=== PATIENT | female | born 1945 | race Caucasian/White ===

== ENCOUNTER 2020-02-21 13:13 | Observation (INO) ==
--- NOTE | 2020-02-21 14:07 | ERNOTE ---
Dyspnea - Date Date of Service: 02/21/20 - General Presenting Symptoms: shortness of breath Time Seen by Provider: 02/21/20 13:41 Source: patient, RN notes reviewed, old records Exam Limitations: no limitations - Immun/Allergies/Home Medications Immunizations: IMMUNIZATION HX Immunizations Up to Date Yes History of Influenza Vaccine Yes Hx Pneumococcal Vaccination No Allergies/Adverse Reactions: Allergies naproxen Allergy (Mild, Verified 02/21/20 13:36) loss of voice, hives naproxen sodium [From Aleve] Allergy (Mild, Verified 02/21/20 13:36) loss of voice, hives clarithromycin [From Biaxin] Adverse Reaction (Mild, Verified 02/21/20 13:36) runny nose and eyes, rash codeine [Codeine] Adverse Reaction (Mild, Verified 02/21/20 13:36) vomiting, dizziness Home Medications: HOME MEDICATIONS nifedipine 90 mg tablet,extended release 90 mg PO DAILY #90 tab 10/23/19 [Last Taken Unknown] rivaroxaban 20 mg tablet 20 mg PO DAILY #90 tab 10/23/19 [Last Taken Unknown] metoprolol tartrate 50 mg tablet 50 mg PO BID #60 tab 12/06/19 [Last Taken Unknown] zolpidem 5 mg tablet 5 mg PO HS PRN #30 tab 01/21/20 [Last Taken Unknown] PARoxetine HCL [Paroxetine HCl] 20 mg PO DAILY 01/28/20 [Last Taken Unknown] furosemide 20 mg tablet 20 mg PO DAILY 02/05/20 [Last Taken Unknown] Potassium Chloride 10 meq PO DAILY #30 tablet.er 02/07/20 [Last Taken Unknown] spironolactone 25 mg tablet 12.5 mg PO DAILY tab 02/15/20 [Last Taken Unknown] - History of Present Illness Narrative: Brittney is a 74-year-old female who presents to the emergency department for shortness of breath. She saw her primary care provider in the clinic 6 days ago for a follow-up appointment. She was recently hospitalized with hyperkalemia. She reports she was feeling fine until she got home after her appointment when she noticed that she was having a hard time breathing. This is continued since. She denies any fevers or chills. She does report having a cough but attributes this to allergies. She reports lower extremity edema that might be slightly worse than usual. She denies any chest pain. She has no sick contacts at home. Date (Duration): 02/15/20 Treatment UNIFORM ATTENDANT: none Initiating event: Reports: unknown Frequency of episodes: Reports: no prior episodes Modifying Factors - (Improves): Reports: nothing Modifying Factors (Worsens): Reports: activity Associated Symptoms-Dyspnea: Reports: ankle/leg swelling. Denies: fever/chills, chest pain/discomfort, palpitations, wheezing, leg/calf pain Prior Treatment: Reports: recently seen Review of Systems - Review of Systems Constitutional: Present: recent illness. Absent: fever, chills, malaise EYE: Absent: eye pain, eye discharge ENT: Absent: ear pain, nose congestion, nasal drainage, sore throat Respiratory: Present: shortness of breath, cough. Absent: orthopnea, wheezing Cardiology: Present: edema. Absent: chest pain, syncope, claudication Gastrointestinal/Abdominal: Absent: nausea, vomiting, abdominal pain Genitourinary: Absent: decreased urinary output Musculoskeletal: Absent: muscle pain, joint pain Skin: Absent: rash, lesions Neurological: Absent: headache, dizziness/light-headedness Endocrine: Present: no symptoms reported Hematologic/Lymphatic: Present: easy bruising, easy bleeding Psych: Absent: anxiety Medical History (Last Reviewed 02/21/20 @ 15:24 by Sabiha Valdovinos NP) Acute hyperkalemia (Acute) Onset Date: ~02/05/20 Renovascular hypertension (Acute) Onset Date: ~02/05/20 Anemia (Acute) Onset Date: ~2019 Acute kidney injury (Acute) Onset Date: ~02/05/20 GERD (gastroesophageal reflux disease) (Chronic) Onset Date: Unknown Hypertension (Chronic) Onset Date: Unknown Depression (Chronic) Onset Date: Unknown Atrial fibrillation (Chronic) Onset Date: Unknown History of uterine prolapse Onset Date: ~1970 Surgical History: Surgical History (Last Reviewed 02/21/20 @ 15:24 by Sabiha Valdovinos NP) History of appendectomy Onset Date: ~1970 History of arthroplasty of left knee Onset Date: 09/30/14 left History of arthroscopic surgery of shoulder Onset Date: ~2008 Dr Garvey left labral tear, biceps tenodesis History of cholecystectomy Onset Date: Unknown History of total abdominal hysterectomy Onset Date: ~1990 dr Hannon Hx of breast biopsy Onset Date: Unknown both breasts Family History: Family History (Last Reviewed 02/21/20 @ 15:24 by Sabiha Valdovinos NP) Father , age 42 CVA (cerebral vascular accident) Mother , age 84 Hypertension History of stroke Social History: (Last Reviewed 02/21/20 @ 15:24 by Sabiha Valdovinos NP) Social History: Marital status: household members: spouse current occupational status: retired Highest education level completed: some college, no degree Service: No Tobacco: Smoking Status: Former smoker how long ago did patient quit smoking: quit age 38 Alcohol: alcohol intake: current alcohol intake frequency: a few times a month Substance Use: substance use type: does not use Dietary Habits: caffeine: Yes caffeine comment: 3 per week Type: tea, carbonated beverages Physical Exam - Physical Exam General Appearance: Present: alert, mild distress, obese Head Exam: Present: normal inspection Eye Exam: Normal inspection: bilateral Ears, Nose, Throat: Present: normal ENT inspection, normal pharynx Neck: Present: normal inspection, nontender, supple, full range of motion Respiratory: Present: no respiratory distress, lungs clear, accessory muscle use, other - Mild dysnpea present at rest, no cough noted during exam Cardiovascular/Chest: Present: no murmur, irregularly irregular Extremity Exam: Present: non-tender, normal range of motion, pedal edema - mild, bilateral Neurological Exam: Present: alert, oriented, normal mood/affect, no motor/sensory deficits Skin Exam: Present: normal color, warm/dry Progress - Results and Orders Patient's Lab Results:: I have reviewed the patient's lab results. - Vital Signs Patient's Vital Signs:: I have reviewed the patient's vital signs. Vital Signs: Vital Signs 02/21/20 13:32 02/21/20 13:50 Temperature 36.3 C Pulse Rate 89 89 Respiratory Rate 17 Blood Pressure 127/74 O2 Sat by Pulse Oximetry 95 - EKG EKG #1 EKG: atrial fibrillation EKG read: Reviewed by me - X-Ray X-Ray #1 X-Ray: chest Interpretation: Reviewed by me X-ray Comments: Technique: Portable AP view of the chest is compared to prior dated January 27, 2006 Findings: Diffuse hyperinflation of the lungs bilaterally with flattening of the hemidiaphragm. Blunting of the left costophrenic angle suggestive of small effusion. The lungs are otherwise clear bilaterally. There is no consolidation, right pleural effusion or pneumothorax. Cardiac silhouette is enlarged but stable. The pulmonary vasculature are normal. Aortic atherosclerosis. The osseous structures demonstrate degenerative changes of the spine and shoulders. IMPRESSION: 1. SMALL LEFT PLEURAL EFFUSION. 2. OTHERWISE NO ACUTE CARDIOPULMONARY ABNORMALITY IDENTIFIED. Electronically signed by Ananth Carey D.O.. - Progress/Reassessment Chief Complaint: Dyspnea Progress:: Unchanged Plan - Plan Plan: The patient is in CHF with a BNP of 3000 and a small left-sided pleural effusion on chest x-ray. She is mildly dyspneic at rest while she is speaking and has more lower extremity edema than her usual. She tested negative for COVID-19. She was recently hyperkalemic but now has a potassium of only 3.0. Dr. Feliciano was contacted and agreed to admit the patient to observation for diuresis, potassium replacement and monitoring. The patient will be given Lasix 40 mg IV prior to admission. Departure Clinical Impression: Hypokalemia CHF (congestive heart failure) Qualifiers: Heart failure type: unspecified Heart failure chronicity: acute Qualified Code(s): I50.9 - Heart failure, unspecified - Departure Disposition: Still a patient Condition: Stable Referrals: Elvira Morales MD [Primary Care Provider] -
[2020-02-21 14:44] LABS: Hematocrit 32.6 % (37.0-47.0); Hemoglobin 9.5 gm/dL (12.5-16.0); Mean Cell Volume 87.4 fl (78-100); Mean Corpuscular Hemoglobin 25.5 pg (27-31); Mean Corpuscular Hgb Conc 29.1 g/dl (32-36); Neutrophil # 5.5 K/mm3 (1.3-6.0); Neutrophil % 78.6 % (42-75.0); Platelet Count 285 K/mm3 (150-450); Red Blood Count 3.73 M/mm3 (4.2-5.4); Red Cell Distribution Width 20.5 % (11.5-14.0)
[2020-02-21 15:20] LABS: ALT 15 U/L (19-67); AST 21 U/L (0-48); Alkaline Phosphatase * 64 U/L (50-170); Anion Gap 19.3 mmol/L (6.8-13.8); BNP * 3136 pg/mL (5-550); BUN/Creatinine Ratio 21.9 (9.0-21.6); Bilirubin, Total 0.6 mg/dL (0.0-1.1); Blood Urea Nitrogen 21 mg/dL (3-23); Ca. Corrected For Albumin 9.4 mg/dL (8.4-10.2); Calcium * 8.9 mg/dL (7.9-10.9); Carbon Dioxide 18.7 mmol/L (24-32.6); Chloride 102 mmol/L (97-106); Glucose * 133 mg/dL (70-110); Sodium 137 mmol/L (132-142); Total Protein 7.4 gm/dL (6.2-8.2); Troponin I Less than 0.017 ng/mL (0.00-0.10)
[2020-02-21] MEDS ORDERED: FUROSEMIDE 10 MG/ML VIAL IV ONE (16:31)
--- NOTE | 2020-02-21 19:34 | HP ---
Chief Complaint - Chief Complaint Date of Service: 02/21/20 Time of Service: 19:34 Chief Complaint: shortness of breath History of Present Illness: Patient with past medical history of atrial fibrillation on metoprolol and Xarelto, pulmonary hypertension, 27-year smoking history presents with about 6 days of shortness of breath. She has noticed some lower extremity edema. She is also noticed she is developed the inability to lie flat to sleep due to breathing. In the ED, COVID test is negative. EKG showed atrial fibrillation with heart rate of 99. BNP was 3100. Negative troponin. She also had a potassium level of 3.0. Of note, she was recently hospitalized and had a potassium elevated as high as 6.8 on the 11 of this month. She had another hospitalization last month for a bleeding gluteal cleft fissure. Denies fever, chest pain, sick contacts, cough, abdominal pain, urinary symptoms. She had been having some constipation while she is taking iron, but has stopped the supplement and the constipation is resolved. She does have psoriasis. Medical History (Last Reviewed 02/21/20 @ 17:24 by Caro Royal RN) Acute hyperkalemia (Acute) Onset Date: ~02/05/20 Renovascular hypertension (Acute) Onset Date: ~02/05/20 Anemia (Acute) Onset Date: ~2019 Acute kidney injury (Acute) Onset Date: ~02/05/20 GERD (gastroesophageal reflux disease) (Chronic) Onset Date: Unknown Hypertension (Chronic) Onset Date: Unknown Depression (Chronic) Onset Date: Unknown Atrial fibrillation (Chronic) Onset Date: Unknown History of uterine prolapse Onset Date: ~1970 Surgical History: Surgical History (Last Reviewed 02/21/20 @ 17:24 by Caro Royal RN) History of appendectomy Onset Date: ~1970 History of arthroplasty of left knee Onset Date: 09/30/14 left History of arthroscopic surgery of shoulder Onset Date: ~2008 Dr Garvey left labral tear, biceps tenodesis History of cholecystectomy Onset Date: Unknown History of total abdominal hysterectomy Onset Date: ~1990 dr Hannon Hx of breast biopsy Onset Date: Unknown both breasts Family History: Family History (Last Reviewed 02/21/20 @ 17:24 by Caro Royal RN) Father , age 42 CVA (cerebral vascular accident) Mother , age 84 Hypertension History of stroke Social History: (Last Reviewed 02/21/20 @ 17:24 by Caro Royal RN) Social History: Marital status: household members: spouse current occupational status: retired Highest education level completed: some college, no degree Service: No Tobacco: Smoking Status: Former smoker how long ago did patient quit smoking: quit age 38 Alcohol: alcohol intake: current alcohol intake frequency: a few times a month Substance Use: substance use type: does not use Dietary Habits: caffeine: Yes caffeine comment: 3 per week Type: tea, carbonated beverages Review Of Systems (GEN) - Review of Systems Generalized/Overall Review: Absent: Fever Respiratory: Present: Shortness of Breath. Absent: Cough, Wheezing Cardiac: Present: Edema. Absent: Chest Pain Abdominal: Absent: Vomiting Genitourinary: Present: No Symptoms Reported Musculoskeletal: Present: No Symptoms Reported Neurological: Present: No Symptoms Reported Skin: Present: Rash - psoriasis Immunizations: IMMUNIZATION HX Immunizations Up to Date Yes History of Influenza Vaccine Yes Hx Pneumococcal Vaccination No Allergies/Adverse Reactions: Allergies Allergy/AdvReac Type Severity Reaction Status Date / Time naproxen Allergy Mild loss of Verified 02/21/20 13:36 voice, hives naproxen sodium [From Aleve] Allergy Mild loss of Verified 02/21/20 13:36 voice, hives clarithromycin [From Biaxin] AdvReac Mild runny nose Verified 02/21/20 13:36 and eyes, rash codeine [Codeine] AdvReac Mild vomiting, Verified 02/21/20 13:36 dizziness Home Medications: HOME MEDICATIONS nifedipine 90 mg tablet,extended release 90 mg PO DAILY #90 tab 10/23/19 [Last Taken Unknown] rivaroxaban 20 mg tablet 20 mg PO DAILY #90 tab 10/23/19 [Last Taken Unknown] metoprolol tartrate 50 mg tablet 50 mg PO BID #60 tab 12/06/19 [Last Taken U nknown] zolpidem 5 mg tablet 5 mg PO HS PRN #30 tab 01/21/20 [Last Taken Unknown] PARoxetine HCL [Paroxetine HCl] 20 mg PO DAILY 01/28/20 [Last Taken Unknown] furosemide 20 mg tablet 20 mg PO DAILY 02/05/20 [Last Taken Unknown] Potassium Chloride 10 meq PO DAILY #30 tablet.er 02/07/20 [Last Taken Unknown] spironolactone 25 mg tablet 12.5 mg PO DAILY tab 02/15/20 [Last Taken Unknown] Exam - Exam Vital Signs: Vital Signs - Last Taken Temp 36.7 C 02/21/20 17:32 Pulse 94 02/21/20 17:53 Resp 22 H 02/21/20 17:32 BP 122/55 02/21/20 17:32 Pulse Ox 93 02/21/20 17:32 Constitutional: Present: Alert, Cooperative, Morbidly obese Respiratory: Present: no respiratory distress, crackles - bilateral posterior bases, other - Mildly increased work of breathing Cardiovascular/Chest: Present: irregularly irregular Abdomen: Present: obese Extremity: Present: lower extremity edema - 1+ bilaterally Eye contact: Present: cooperative, good eye contact Diagnostic Studies: Abnormal Lab Results 02/21/20 02/21/20 Range/Units 14:25 14:25 RBC 3.73 L (4.2-5.4) M/mm3 Hgb 9.5 L (12.5-16.0) gm/dL Hct 32.6 L (37.0-47.0) % MCH 25.5 L (27-31) pg MCHC 29.1 L (32-36) g/dl RDW 20.5 H (11.5-14.0) % Immature Gran % (Auto) 0.70 H (0.001-0.429) % Immature Gran # (Auto) 0.05 H (0.000-0.0310) K/mm3 Neutrophils % 78.6 H (42-75.0) % Lymphocytes % 9.2 L (20-51) % Lymphocytes # 0.65 L (1.5-3.5) k/mm3 Potassium 3.0 L D (3.4-4.6) mmol/L Carbon Dioxide 18.7 L (24-32.6) mmol/L Anion Gap 19.3 H (6.8-13.8) mmol/L BUN/Creatinine Ratio 21.9 H (9.0-21.6) Random Glucose 133 H (70-110) mg/dL ALT 15 L (19-67) U/L B-Natriuretic Peptide 3136 H (5-550) pg/mL Albumin 3.0 L (3.4-5.0) gm/dl Laboratory Results WBC 7.0 K/mm3 (4.0-10.5) 02/21/20 14:25 RBC 3.73 M/mm3 (4.2-5.4) L 02/21/20 14:25 Hgb 9.5 gm/dL (12.5-16.0) L 02/21/20 14:25 Hct 32.6 % (37.0-47.0) L 02/21/20 14:25 MCV 87.4 fl (78-100) 02/21/20 14:25 MCH 25.5 pg (27-31) L 02/21/20 14:25 MCHC 29.1 g/dl (32-36) L 02/21/20 14:25 RDW 20.5 % (11.5-14.0) H 02/21/20 14:25 Plt Count 285 K/mm3 (150-450) 02/21/20 14:25 MPV 10.0 fl (8-12.5) 02/21/20 14:25 Immature Gran % (Auto) 0.70 % (0.001-0.429) H 02/21/20 14: Immature Gran # (Auto) 0.05 K/mm3 (0.000-0.0310) H 02/21/20 14:25 Neutrophils % 78.6 % (42-75.0) H 02/21/20 14:25 Lymphocytes % 9.2 % (20-51) L 02/21/20 14:25 Monocytes % 7.7 % (0.0-9) 02/21/20 14:25 Eosinophils % 2.8 % (0.0-3.0) 02/21/20 14: Basophils % 1.0 % (0.0-1.0) 02/21/20 14: Nucleated RBC % 0.0 k/mm3 (0-1) 02/21/20 14: Neutrophils # 5.5 K/mm3 (1.3-6.0) 02/21/20 14: Lymphocytes # 0.65 k/mm3 (1.5-3.5) L 02/21/20 14:25 Monocytes # 0.5 k/mm3 (0.0-1.0) 02/21/20 14: Eosinophils # 0.2 k/mm3 (0.0-0.7) 02/21/20 14: Absolute Basophils 0.1 k/mm3 (0.0-0.1) 02/21/20 14:25 Sodium 137 mmol/L (132-142) 02/21/20 14:25 Plasma Sodium 138 mmol/L (130-142) 02/21/20 14:25 Potassium 3.0 mmol/L (3.4-4.6) L D 02/21/20 14:25 Chloride 102 mmol/L (97-106) 02/21/20 14:25 Carbon Dioxide 18.7 mmol/L (24-32.6) L 02/21/20 14:25 Anion Gap 19.3 mmol/L (6.8-13.8) H 02/21/20 14:25 BUN 21 mg/dL (3-23) 02/21/20 14:25 Creatinine 0.96 mg/dL (0.4-1.4) 02/21/20 14:25 Est GFR (Non-Af Amer) 60 mL/min (60-130) D 02/21/20 14:25 BUN/Creatinine Ratio 21.9 (9.0-21.6) H 02/21/20 14:25 Random Glucose 133 mg/dL (70-110) H 02/21/20 14:25 Calcium 8.9 mg/dL (7.9-10.9) 02/21/20 14:25 Calcium Adj for Albumin 9.4 mg/dL (8.4-10.2) 02/21/20 14:25 Total Bilirubin 0.6 mg/dL (0.0-1.1) 02/21/20 14:25 AST 21 U/L (0-48) 02/21/20 14:25 ALT 15 U/L (19-67) L 02/21/20 14:25 Alkaline Phosphatase 64 U/L (50-170) 02/21/20 14:25 Troponin I Less than 0.017 ng/mL (0.00-0.10) 02/21/20 14:25 B-Natriuretic Peptide 3136 pg/mL (5-550) H 02/21/20 14:25 Total Protein 7.4 gm/dL (6.2-8.2) 02/21/20 14:25 Albumin 3.0 gm/dl (3.4-5.0) L 02/21/20 14:25 SARS-CoV-2 (PCR) Not detected (ND) 02/21/20 14:45 Assessment/Plan - Assessment/Plan (1) Shortness of breath Assessment: Differential includes heart failure exacerbation, COPD exacerbation, COVID, pneumonia, ACS. Physical exam findings, chest x-ray with a pleural effusion on the left, and BNP all support heart failure exacerbation. Her last echo was in 2018, and did not show heart failure at that time. Can repeat after discharge. It did show pulmonary hypertension with an RVSP of 43. She was unaware of this diagnosis. She does report a 27-year history of smoking, so she likely also has underlying COPD, which could be a source of her pulmonary hypertension. No wheezing on exam. She denies fever or cough, no increased white blood cell count on her CBC, and no signs of pneumonia all make pneumonia less likely. Troponin was negative and no signs of ischemia or infarct on EKG making ACS less likely. COVID swab negative. She is able to easily conversate and is oxygenating on room air. She does have mildly increased work of breathing. She was given 40 of IV Lasix in the ED. She takes 20 mg p.o. daily at baseline. We will reassess her work of breathing in the morning. If her breathing has improved and potassium recovers, anticipate discharge tomorrow with an increased K+ supplement dose. Problem: Acute (2) Hypokalemia Assessment: Potassium today of 3.0. Will administer 40 mEq K-Dur tonight and in the morning and recheck tomorrow. Chart review shows she has had some fairly drastic fluctuations in her potassium, being as high as 6.8 earlier this month. Unable to find a source of her hyperkalemia at that time. She takes 10 mEq K+ at baseline, as well as 25 mg spironolactone. Likely will decrease her potassium supplement with close follow-up. Problem: Acute (3) Heart failure with preserved ejection fraction Assessment: Repeat echocardiogram has been ordered, to be done after discharge Problem: Suspected Qualifiers: Heart failure chronicity: acute Qualified Code(s): I50.31 - Acute diastolic (congestive) heart failure (4) Pulmonary hypertension Assessment: She was unaware of this diagnosis, but it was present on echo done in 2018. Could be secondary to COPD or obesity hypoventilation syndrome. Repeat echo pending for after discharge. Problem: Chronic (5) Hypertension Assessment: She has a diagnosis of hypertension on her problem list, and has metoprolol and spironolactone, which could be both for blood pressure. Will continue. Blood pressure currently well controlled. Problem: Chronic
[2020-02-21] MEDS ORDERED: ZOLPIDEM TARTRATE 5 MG TABLET PO PRN (19:51)
[2020-02-21] MEDS: METOPROLOL TARTRATE 50 MG TABLET PO SCH (20:33)
[2020-02-22 07:07] LABS: Anion Gap 15.3 mmol/L (6.8-13.8); BUN/Creatinine Ratio 21.8 (9.0-21.6); Bilirubin, Total 0.7 mg/dL (0.0-1.1); Ca. Corrected For Albumin 9.2 mg/dL (8.4-10.2); Calcium * 8.7 mg/dL (7.9-10.9); Carbon Dioxide 24.5 mmol/L (24-32.6); Potassium 2.8 mmol/L (3.4-4.6); Total Protein 6.4 gm/dL (6.2-8.2)
[2020-02-22] MEDS ORDERED: FUROSEMIDE 10 MG/ML VIAL IV ONE (07:50)
[2020-02-22 07:57] LABS: Magnesium 1.9 mg/dL (1.2-2.8); Phosphorus 3.1 mg/dL (2.2-4.2)
[2020-02-22] MEDS: POTASSIUM CHLORIDE IN WATER 100 ML IV SCH ×4 (08:24→11:42)
[2020-02-22] MEDS: METOPROLOL TARTRATE 50 MG TABLET PO SCH (08:26)
[2020-02-22] MEDS ORDERED: NIFEdipine 30 MG TAB.SR.24H PO SCH (09:00)
[2020-02-22] MEDS ORDERED: PARoxetine HCL 20 MG TABLET PO SCH (09:00)
[2020-02-22] MEDS ORDERED: POTASSIUM CHLORIDE 20 MEQ TABLET.SA PO SCH (09:00)
[2020-02-22] MEDS ORDERED: SPIRONOLACTONE 25 MG TABLET PO SCH (09:00)
[2020-02-22] MEDS ORDERED: RIVAROXABAN 20 MG TABLET PO SCH (09:00)
[2020-02-22 14:45] LABS: Anion Gap 16.9 mmol/L (6.8-13.8); Calcium * 8.9 mg/dL (7.9-10.9); Carbon Dioxide 22.5 mmol/L (24-32.6); Estimated Creat Clear 29.4; Potassium 3.4 mmol/L (3.4-4.6)
--- NOTE | 2020-02-22 17:14 | DS ---
(1) Shortness of breath Problem: Resolved (2) Hypokalemia Problem: Resolved (3) Heart failure with preserved ejection fraction Problem: Suspected Qualifiers: Heart failure chronicity: acute Qualified Code(s): I50.31 - Acute diastolic (congestive) heart failure (4) Pulmonary hypertension Problem: Chronic (5) Hypertension Problem: Chronic Date of Discharge:: 02/22/20 Hospital Course: Patient with past medical history of atrial fibrillation on metoprolol and Xarelto, pulmonary hypertension, 27-year smoking history presents with about 6 days of shortness of breath. She has noticed some lower extremity edema. She is also noticed she is developed the inability to lie flat to sleep due to breathing. In the ED, COVID test is negative. EKG showed atrial fibrillation with heart rate of 99. BNP was 3100. Negative troponin. She also had a potassium level of 3.0. Of note, she was recently hospitalized and had a potassium elevated as high as 6.8 on the 11th of this month. She had another hospitalization last month for a bleeding gluteal cleft fissure. Denies fever, chest pain, sick contacts, cough, abdominal pain, urinary symptoms. She was given 40 mg IV lasix twice, and she felt like her breathing improved. Will DC with 40 mg po lasix for her to take daily. Repeat echocardiogram ordered to be done next week. At DC, she did still seem like she was having a mild increase in her work of breathing, so will send with a few days of prednisone. She has a smoking history, and COPD is suspected. She was also given 40 mEq IV KCl, and her potassium improved to 3.4. Will increase home supplement to 40 mEq daily. Will need close follow up to ensure s he does not again develop hyperkalemia. Repeat BMP ordered for 02/27/20. With the increase in lasix dose, I feel like this is less likely to happen, however. Procedures Performed: none Results and Findings: Lab Pending Results 02/21/20 14:25: WBC 7.0, RBC 3.73 L, Hgb 9.5 L, Hct 32.6 L, MCV 87.4, MCH 25.5 L, MCHC 29.1 L, RDW 20.5 H, Plt Count 285, MPV 10.0, Immature Gran % (Auto) 0.70 H, Immature Gran # (Auto) 0.05 H, Neutrophils % 78.6 H, Lymphocytes % 9.2 L, Monocytes % 7.7, Eosinophils % 2.8, Basophils % 1.0, Nucleated RBC % 0.0, Neutrophils # 5.5, Lymphocytes # 0.65 L, Monocytes # 0.5, Eosinophils # 0.2, Absolute Basophils 0.1 02/21/20 14:25: Sodium 137, Plasma Sodium 138, Potassium 3.0 L D, Chloride 102, Carbon Dioxide 18.7 L, Anion Gap 19.3 H, BUN 21, Creatinine 0.96, Est GFR (Non- Af Amer) 60 D, BUN/Creatinine Ratio 21.9 H, Random Glucose 133 H, Calcium 8.9, Calcium Adj for Albumin 9.4, Total Bilirubin 0.6, AST 21, ALT 15 L, Alkaline Phosphatase 64, Troponin I Less than 0.017, B-Natriuretic Peptide 3136 H, Total Protein 7.4, Albumin 3.0 L 02/21/20 14:45: SARS-CoV-2 (PCR) Not detected 02/22/20 06:00: Sodium 140, Plasma Sodium 140, Potassium 2.8 L, Chloride 103, Carbon Dioxide 24.5, Anion Gap 15.3 H, BUN 17, Creatinine 0.78, Est GFR (Non-Af Amer) 76 D, BUN/Creatinine Ratio 21.8 H, Random Glucose 101, Calcium 8.7, Calcium Adj for Albumin 9.2, Total Bilirubin 0.7, AST 14, ALT 16 L, Alkaline Phosphatase 63, Total Protein 6.4, Albumin 3.0 L 02/22/20 06:00: Phosphorus 3.1, Magnesium 1.9 02/22/20 14:15: Sodium 136, Plasma Sodium 137, Potassium 3.4 D, Chloride 100, Carbon Dioxide 22.5 L, Anion Gap 16.9 H, BUN 20, Creatinine 1.11, Est GFR (Non- Af Amer) 51 L D, BUN/Creatinine Ratio 18.0, Random Glucose 173 H D, Calcium 8.9 Discharge Location: Home Disposition: Home self-care Condition: Stable Discharge Activity: Activity as tolerated Discharge Diet: Low salt Referrals: Elvira Morales MD [Primary Care Provider] - 02/27/20 Additional Patient Instructions (free text): Echocardiogram in 1 week- community wide scheduling will call you with an appointment. Prescriptions (Any new or edited meds): Furosemide 40 mg PO DAILY #60 predniSONE [Prednisone] 2 tab PO DAILY #10 tab Transmission Status: Pending to [facility] Complete Home Medications List: Complete Home Medication List: nifedipine 90 mg tablet,extended release 90 mg PO DAILY #90 tab 10/23/19 rivaroxaban 20 mg tablet 20 mg PO DAILY #90 tab 10/23/19 metoprolol tartrate 50 mg tablet 50 mg PO BID #60 tab 12/06/19 zolpidem 5 mg tablet 5 mg PO HS PRN #30 tab 01/21/20 PARoxetine HCL [Paroxetine HCl] 20 mg PO DAILY 01/28/20 Potassium Chloride 10 meq PO DAILY #30 tablet.er 02/07/20 spironolactone 25 mg tablet 12.5 mg PO DAILY tab 02/15/20 Furosemide 40 mg PO DAILY #60 02/22/20 predniSONE [Prednisone] 2 tab PO DAILY #10 tab 02/22/20 Amb Orders for Discharge: US Echocardiogram Complete * Time Frame: 1 Week, Facility: [facility], Location: Radiology
[2020-02-22 18:49] VITALS: BP 135/60
== END 2020-02-22 17:55 | disposition home or self-care (01) ==
LOC: ER 13:13 → MS 13:13
PROVIDERS: ADMIT Family Medicine; ATTEND Family Medicine
DX: K21.9 Gastro-esophageal reflux disease without esophagitis; I48.91 Unspecified atrial fibrillation; I50.31 Acute diastolic (congestive) heart failure; E87.6 Hypokalemia; I27.20 Pulmonary hypertension, unspecified; I15.0 Renovascular hypertension; I11.0 Hypertensive heart disease with heart failure; Z87.891 Personal history of nicotine dependence

== ENCOUNTER 2020-03-24 10:42 | Observation (INO) ==
--- NOTE | 2020-03-24 11:43 | ERNOTE ---
Dyspnea - Date Date of Service: 03/24/20 - General Presenting Symptoms: shortness of breath, difficulty of breathing Time Seen by Provider: 03/24/20 11:30 Source: patient Exam Limitations: no limitations - Immun/Allergies/Home Medications Immunizations: IMMUNIZATION HX Immunizations Up to Date Yes History of Influenza Vaccine No Hx Pneumococcal Vaccination No Allergies/Adverse Reactions: Allergies naproxen Allergy (Mild, Verified 02/27/20 10:16) loss of voice, hives naproxen sodium [From Aleve] Allergy (Mild, Verified 02/27/20 10:16) loss of voice, hives clarithromycin [From Biaxin] Adverse Reaction (Mild, Verified 02/27/20 10:16) runny nose and eyes, rash codeine [Codeine] Adverse Reaction (Mild, Verified 02/27/20 10:16) vomiting, dizziness Home Medications: HOME MEDICATIONS nifedipine 90 mg tablet,extended release 90 mg PO DAILY #90 tab 10/23/19 [Last Taken Unknown] rivaroxaban 20 mg tablet 20 mg PO DAILY #90 tab 10/23/19 [Last Taken Unknown] metoprolol tartrate 50 mg tablet 50 mg PO BID #60 tab 12/06/19 [Last Taken Unknown] zolpidem 5 mg tablet 5 mg PO HS PRN #30 tab 01/21/20 [Last Taken Unknown] PARoxetine HCL [Paroxetine HCl] 20 mg PO DAILY 01/28/20 [Last Taken Unknown] spironolactone 25 mg tablet 12.5 mg PO DAILY tab 02/15/20 [Last Taken Unknown] Furosemide 40 mg PO DAILY #60 02/22/20 [Last Taken Unknown] predniSONE [Prednisone] 2 tab PO DAILY #10 tab 02/22/20 [Last Taken Unknown] potassium chloride 10 mEq tablet,extended release 20 meq PO DAILY #60 tab 03/12/20 [Last Taken Unknown] - Pain Score Pain Score #1 Pain Score: 0 - History of Present Illness Narrative: The patient is a 74 year old female who presents for shortness of breath which has been worsening since . There are no associated symptoms. The patient denies pain. There are alleviating factors of rest. There are aggravating factors of minimal activity. Previous treatments have included: none. The past medical history includes: AFib, depression, HTN, GERD and anemia. The social history is positive for former smoker. The patient has had no known ill contacts. Patient was admitted 1 month ago for CHF exacerbation and hypokalemia, patient had previously been hyperkalemic and taken off supplements. Patient states she was kept overnight for diaphoresis and was discharged the following day with resolved symptoms. Patient states she has had an intermittent cough that is more clearing of her throat then cough with chest congestion. Patient states if she is resting in the chair she is fine but any minimal exertion, including just writing she becomes dyspneic. Patient denies weight changes or increased edema. Review of Systems - Review of Systems Constitutional: Present: recent illness, fatigue. Absent: fever, chills, diaphoresis EYE: Present: no symptoms reported ENT: Present: no symptoms reported. Absent: ear pain, nasal drainage, sore throat Respiratory: Present: shortness of breath, cough Cardiology: Present: no symptoms reported. Absent: chest pain Gastrointestinal/Abdominal: Present: no symptoms reported. Absent: nausea, vomiting, diarrhea, abdominal pain Genitourinary: Present: no symptoms reported. Absent: dysuria Musculoskeletal: Present: no symptoms reported Skin: Present: no symptoms reported. Absent: rash Neurological: Present: no symptoms reported. Absent: dizziness/light-headedness All Other Systems: All systems neg except as marked Medical History (Last Reviewed 03/24/20 @ 11:38 by FREDRICK Prater) Acute hyperkalemia (Acute) Onset Date: ~02/05/20 Renovascular hypertension (Acute) Onset Date: ~02/05/20 Anemia (Acute) Onset Date: ~2019 Acute kidney injury (Acute) Onset Date: ~02/05/20 GERD (gastroesophageal reflux disease) (Chronic) Onset Date: Unknown Hypertension (Chronic) Onset Date: Unknown Depression (Chronic) Onset Date: Unknown Atrial fibrillation (Chronic) Onset Date: Unknown History of uterine prolapse Onset Date: ~1970 Surgical History: Surgical History (Last Reviewed 03/24/20 @ 11:38 by FREDRICK Prater) History of appendectomy Onset Date: ~1970 History of arthroplasty of left knee Onset Date: 09/30/14 left History of arthroscopic surgery of shoulder Onset Date: ~2008 Dr Garvey left labral tear, biceps tenodesis History of cholecystectomy Onset Date: Unknown History of total abdominal hysterectomy Onset Date: ~1990 dr Hannon Hx of breast biopsy Onset Date: Unknown both breasts Family History: Family History (Last Reviewed 03/24/20 @ 11:38 by FREDRICK Prater) Father , age 42 CVA (cerebral vascular accident) Mother , age 84 Hypertension History of stroke Social History: (Last Reviewed 03/24/20 @ 11:38 by FREDRICK Prater) Social History: Marital status: household members: spouse current occupational status: retired Highest education level completed: some college, no degree Service: No Tobacco: Smoking Status: Former smoker how long ago did patient quit smoking: quit age 38 Alcohol: alcohol intake: current alcohol intake frequency: a few times a month Substance Use: substance use type: does not use Dietary Habits: caffeine: Yes caffeine comment: 3 per week Type: tea, carbonated beverages Physical Exam - Physical Exam General Appearance: Present: wd/wn, alert, mild distress Head Exam: Present: normal inspection, no evidence of injury Eye Exam: Normal inspection: bilateral, PERRL: bilateral, EOMI: bilateral Ears, Nose, Throat: Present: normal ENT inspection, normal pharynx Neck: Present: normal inspection Respiratory: Present: respiratory distress - mild at rest, breaks in middle of sentence, accessory muscle use, decreased breath sounds - bases bilateral. Absent: crackles, wheezing Cardiovascular/Chest: Present: no murmur, irregularly irregular - regular rate Extremity Exam: Present: extremity edema - trace, non-pitting Neurological Exam: Present: alert, oriented, normal mood/affect, no motor/sensory deficits Skin Exam: Present: normal color, warm/dry Progress - Date and Time Seen: Date and Time: 03/24/20 14:00 Discussed case with . Feel that patient has increased dyspnea associated with anemia, Hgb 8.2. However, CXR does show findings consistent with CHF exacerbation, BNP slightly elevated at 1187. Will admit and add Lasix 40mg IVP with the plan to transfuse 1 unit PRBC for anemia. Discussed elevated INR with use of Xarelto and will plan to stool occult until positive for monitoring. Patient denies any blood or changes to stool color. Due to hospitalization and symptoms of dyspnea will send for COVID testing. - Results and Orders Patient's Lab Results:: I have reviewed the patient's lab results. - Vital Signs Patient's Vital Signs:: I have reviewed the patient's vital signs. Vital Signs: Vital Signs 03/24/20 11:19 Temperature 35.7 C L Pulse Rate 82 Respiratory Rate 26 H Blood Pressure 109/61 O2 Sat by Pulse Oximetry 94 - EKG EKG #1 EKG: atrial fibrillation - rate 80, nonspecific ST T wave changes EKG read: Reviewed by me - X-Ray X-Ray #1 X-Ray: chest Interpretation: Reviewed by me X-ray Comments: IMPRESSION: FINDINGS CONSISTENT WITH ACUTE CHF EXACERBATION. Electronically signed by Ananth Carey D.O.. - Progress/Reassessment Chief Complaint: Dyspnea Progress:: Unchanged Departure Clinical Impression: Anemia Qualifiers: Anemia type: unspecified type Qualified Code(s): D64.9 - Anemia, unspecified CHF (congestive heart failure) Qualifiers: Heart failure type: unspecified Heart failure chronicity: acute on chronic Qualified Code(s): I50.9 - Heart failure, unspecified - Departure Disposition: Still a patient Condition: Stable Referrals: Elvira Morales MD [Primary Care Provider] -
[2020-03-24 12:30] LABS: Hematocrit 29.1 % (37.0-47.0); Hemoglobin 8.2 gm/dL (12.5-16.0); Mean Cell Volume 80.2 fl (78-100); Mean Corpuscular Hemoglobin 22.6 pg (27-31); Mean Corpuscular Hgb Conc 28.2 g/dl (32-36); Mean Platelet Volume 9.3 fl (8-12.5); NRBC# 0.1 k/mm3 (0-1); Neutrophil # 4.2 K/mm3 (1.3-6.0); Neutrophil % 74.6 % (42-75.0); Platelet Count 455 K/mm3 (150-450); Red Blood Count 3.63 M/mm3 (4.2-5.4); Red Cell Distribution Width 19.5 % (11.5-14.0); White Blood Count 5.6 K/mm3 (4.0-10.5)
[2020-03-24 12:40] LABS: Prothrombin Time (Patient) 14.3 Seconds (9.1-10.7)
[2020-03-24 12:47] LABS: INR 1.47 INR (0.92-1.08)
[2020-03-24 12:51] LABS: ALT 15 U/L (19-67); AST 19 U/L (0-48); Albumin * 3.2 gm/dl (3.4-5.0); Alkaline Phosphatase * 71 U/L (50-170); Anion Gap 14.8 mmol/L (6.8-13.8); BNP * 1187 pg/mL (5-550); BUN/Creatinine Ratio 19.3 (9.0-21.6); Blood Urea Nitrogen 17 mg/dL (3-23); Ca. Corrected For Albumin 9.8 mg/dL (8.4-10.2); Calcium * 9.5 mg/dL (7.9-10.9); Carbon Dioxide 23.7 mmol/L (24-32.6); Chloride 104 mmol/L (97-106); Glucose * 114 mg/dL (70-110); Potassium 3.5 mmol/L (3.4-4.6); Sodium 139 mmol/L (132-142); Total Protein 7.5 gm/dL (6.2-8.2); Troponin I Less than 0.017 ng/mL (0.00-0.10)
[2020-03-24] MEDS ORDERED: FUROSEMIDE 10 MG/ML VIAL IV ONE (13:46)
--- NOTE | 2020-03-24 19:59 | HP ---
Chief Complaint - Chief Complaint Date of Service: 03/24/20 Time of Service: 19:52 Chief Complaint: dyspnea History of Present Illness: The patient is a 74 year old female who presents for shortness of breath which has been worsening since . There are no associated symptoms. The patient denies pain. There are alleviating factors of rest. There are aggravating factors of minimal activity. Previous treatments have included: none. The past medical history includes: AFib, depression, HTN, GERD and anemia. The social history is positive for former smoker. The patient has had no known ill contacts. Patient was admitted 1 month ago for CHF exacerbation and hypokalemia, patient had previously been hyperkalemic and taken off supplements. Patient states she was kept overnight for diaphoresis and was discharged the following day with resolved symptoms. Patient states she has had an intermittent cough that is more clearing of her throat then cough with chest congestion. Patient states if she is resting in the chair she is fine but any minimal exertion, including just writing she becomes dyspneic. Patient denies weight changes or increased edema. Brittney has had 40 mg of Lasix IV in the ER and is urinated a significant amount and is breathing easier this evening. She has walked back and forth to the bathroom without being particularly dyspneic. She has been typed and crossed for 1 unit of packed red blood cells but has not been administered yet. Her neck veins were reported distended with a positive HJR in the emergency room but that is gone now by my exam with her sitting at 90 degrees. She is in no distress this evening. Medical History (Last Reviewed 03/24/20 @ 16:21 by Araseli Guillory RN) Acute hyperkalemia (Acute) Onset Date: ~02/05/20 Renovascular hypertension (Acute) Onset Date: ~02/05/20 Anemia (Acute) Onset Date: ~2019 Acute kidney injury (Acute) Onset Date: ~02/05/20 GERD (gastroesophageal reflux disease) (Chronic) Onset Date: Unknown Hypertension (Chronic) Onset Date: Unknown Depression (Chronic) Onset Date: Unknown Atrial fibrillation (Chronic) Onset Date: Unknown History of uterine prolapse Onset Date: ~1970 Surgical History: Surgical History (Last Reviewed 03/24/20 @ 16:21 by Araseli Guillory RN) History of appendectomy Onset Date: ~1970 History of arthroplasty of left knee Onset Date: 09/30/14 left History of arthroscopic surgery of shoulder Onset Date: ~2008 Dr Garvey left labral tear, biceps tenodesis History of cholecystectomy Onset Date: Unknown History of total abdominal hysterectomy Onset Date: ~1990 dr Hannon Hx of breast biopsy Onset Date: Unknown both breasts Family History: Family History (Last Reviewed 03/24/20 @ 16:21 by Araseli Guillory RN) Father , age 42 CVA (cerebral vascular accident) Mother , age 84 Hypertension History of stroke Social History: (Last Reviewed 03/24/20 @ 16:21 by Araseli Guillory RN) Social History: Marital status: household members: spouse current occupational status: retired Highest education level completed: some college, no degree Service: No Tobacco: Smoking Status: Former smoker how long ago did patient quit smoking: quit age 38 Alcohol: alcohol intake: current alcohol intake frequency: a few times a month Substance Use: substance use type: does not use Dietary Habits: caffeine: Yes caffeine comment: 3 per week Type: tea, carbonated beverages Review Of Systems (GEN) - Review of Systems Generalized/Overall Review: Present: Weakness, Fatigue EENTM: Present: No Symptoms Reported Respiratory: Present: Shortness of Breath Cardiac: Present: Palpitations - With chronic atrial fibrillation that is rate controlled Abdominal: Present: No Symptoms Reported Genitourinary: Present: No Symptoms Reported Musculoskeletal: Present: No Symptoms Reported Neurological: Present: No Symptoms Reported Skin: Present: No Symptoms Reported Endocrine: Present: No Symptoms Reported Misc: All systems neg except as marked Immunizations: IMMUNIZATION HX Immunizations Up to Date Yes History of Influenza Vaccine No Hx Pneumococcal Vaccination No Allergies/Adverse Reactions: Allergies Allergy/AdvReac Type Severity Reaction Status Date / Time ibuprofen [From Advil] Allergy Mild Verified 03/24/20 16:21 naproxen Allergy Mild loss of Verified 02/27/20 10:16 voice, hives naproxen sodium [From Aleve] Allergy Mild loss of Verified 02/27/20 10:16 voice, hives clarithromycin [From Biaxin] AdvReac Mild runny nose Verified 02/27/20 10:16 and eyes, rash codeine [Codeine] AdvReac Mild vomiting, Verified 02/27/20 10:16 dizziness Home Medications: HOME MEDICATIONS nifedipine 90 mg tablet,extended release 90 mg PO DAILY #90 tab 10/23/19 [Last Taken Unknown] rivaroxaban 20 mg tablet 20 mg PO DAILY #90 tab 10/23/19 [Last Taken Unknown] metoprolol tartrate 50 mg tablet 50 mg PO BID #60 tab 12/06/19 [Last Taken Unknown] zolpidem 5 mg tablet 5 mg PO HS PRN #30 tab 01/21/20 [Last Taken Unknown] PARoxetine HCL [Paroxetine HCl] 20 mg PO DAILY 01/28/20 [Last Taken Unknown] spironolactone 25 mg tablet 12.5 mg PO DAILY tab 02/15/20 [Last Taken Unknown] Furosemide 40 mg PO DAILY #60 02/22/20 [Last Taken Unknown] potassium chloride 10 mEq tablet,extended release 20 meq PO DAILY #60 tab 03/12/20 [Last Taken Unknown] Ezetimibe [Zetia] 10 mg PO DAILY 03/24/20 [Last Taken Unknown] Exam - Exam Vital Signs: Vital Signs - Last Taken Temp 36.2 C 03/24/20 16:11 Pulse 92 03/24/20 17:19 Resp 22 H 03/24/20 16:11 BP 150/68 H 03/24/20 16:11 Pulse Ox 95 03/24/20 16:11 Constitutional: Present: Alert, Oriented x3, Cooperative, Well developed, Well nourished, No distress ENT Exam: Present: normal ENT inspection, hearing grossly normal, pharynx normal, TMs normal Eye Exam: bilateral eye: normal inspection, PERRL, EOMI Neck: Present: non-tender, full range of motion, supple, normal inspection Back Exam: Present: normal inspection, other - Increased thoracic kyphosis Breasts: Present: Exam deferred Respiratory: Present: chest non-tender, normal breath sounds, no respiratory distress, no accessory muscle use, crackles - Right posterior base Cardiovascular/Chest: Present: normal peripheral pulses, no chest tenderness, no edema, no gallop, no JVD, no murmur, no rub, irregularly irregular Peripheral Pulses: carotid (R): 2+, carotid (L): 2+, radial (R): 2+, radial (L): 2+ Abdomen: Present: Normal bowel sounds, soft, nontender, nondistended, no rebound tenderness, no hepatospenomegaly, no masses /Rectal: Present: Exam deferred, External genitalia normal Extremity: Present: normal range of motion, non-tender, normal inspection, no pedal edema, no calf tenderness, normal capillary refill Skin Exam: Present: normal color, warm/dry, no cyanosis Lymphatic: Present: no adenopathy Neurologic: Present: speech pathology assistant II-XII nml as tested, normal cerebellar test, no motor/sensory deficits, alert, normal mood/affect Appearance: Present: appropriate appearance, appropriate insight, neat, no memory impairment Eye contact: Present: cooperative, good eye contact, normal speech Thoughts: Present: normal thought pattern, no apparent hallucination Diagnostic Studies: Abnormal Lab Results 03/24/20 03/24/20 03/24/20 Range/Units 12:05 12:05 12:05 RBC 3.63 L (4.2-5.4) M/mm3 Hgb 8.2 L (12.5-16.0) gm/dL Hct 29.1 L (37.0-47.0) % MCH 22.6 L (27-31) pg MCHC 28.2 L (32-36) g/dl RDW 19.5 H (11.5-14.0) % Plt Count 455 H (150-450) K/mm3 Immature Gran % (Auto) 1.30 H (0.001-0.429) % Immature Gran # (Auto) 0.07 H (0.000-0.0310) K/mm3 Lymphocytes % 12.4 L (20-51) % Basophils % 1.1 H (0.0-1.0) % Lymphocytes # 0.69 L (1.5-3.5) k/mm3 PT 14.3 H (9.1-10.7) Seconds INR (Anticoag Therapy) 1.47 H (0.92-1.08) INR Carbon Dioxide 23.7 L (24-32.6) mmol/L Anion Gap 14.8 H (6.8-13.8) mmol/L Random Glucose 114 H (70-110) mg/dL ALT 15 L (19-67) U/L B-Natriuretic Peptide 1187 H (5-550) pg/mL Albumin 3.2 L (3.4-5.0) gm/dl Crossmatch 03/24/20 Range/Units 14:09 RBC (4.2-5.4) M/mm3 Hgb (12.5-16.0) gm/dL Hct (37.0-47.0) % MCH (27-31) pg MCHC (32-36) g/dl RDW (11.5-14.0) % Plt Count (150-450) K/mm3 Immature Gran % (Auto) (0.001-0.429) % Immature Gran # (Auto) (0.000-0.0310) K/mm3 Lymphocytes % (20-51) % Basophils % (0.0-1.0) % Lymphocytes # (1.5-3.5) k/mm3 PT (9.1-10.7) Seconds INR (Anticoag Therapy) (0.92-1.08) INR Carbon Dioxide (24-32.6) mmol/L Anion Gap (6.8-13.8) mmol/L Random Glucose (70-110) mg/dL ALT (19-67) U/L B-Natriuretic Peptide (5-550) pg/mL Albumin (3.4-5.0) gm/dl Crossmatch See Detail Laboratory Results WBC 5.6 K/mm3 (4.0-10.5) 03/24/20 12:05 RBC 3.63 M/mm3 (4.2-5.4) L 03/24/20 12:05 Hgb 8.2 gm/dL (12.5-16.0) L 03/24/20 12:05 Hct 29.1 % (37.0-47.0) L 03/24/20 12:05 MCV 80.2 fl (78-100) 03/24/20 12:05 MCH 22.6 pg (27-31) L 03/24/20 12:05 MCHC 28.2 g/dl (32-36) L 03/24/20 12:05 RDW 19.5 % (11.5-14.0) H 03/24/20 12:05 Plt Count 455 K/mm3 (150-450) H 03/24/20 12:05 MPV 9.3 fl (8-12.5) 03/24/20 12:05 Immature Gran % (Auto) 1.30 % (0.001-0.429) H 03/24/20 12:05 Immature Gran # (Auto) 0.07 K/mm3 (0.000-0.0310) H 03/24/20 12:05 Neutrophils % 74.6 % (42-75.0) 03/24/20 12:05 Lymphocytes % 12.4 % (20-51) L 03/24/20 12:05 Monocytes % 8.1 % (0.0-9) 03/24/20 12:05 Eosinophils % 2.5 % (0.0-3.0) 03/24/20 12:05 Basophils % 1.1 % (0.0-1.0) H 03/24/20 12:05 Nucleated RBC % 0.1 k/mm3 (0-1) 03/24/20 12:05 Neutrophils # 4.2 K/mm3 (1.3-6.0) 03/24/20 12:05 Lymphocytes # 0.69 k/mm3 (1.5-3.5) L 03/24/20 12:05 Monocytes # 0.5 k/mm3 (0.0-1.0) 03/24/20 12:05 Eosinophils # 0.1 k/mm3 (0.0-0.7) 03/24/20 12:05 Absolute Basophils 0.1 k/mm3 (0.0-0.1) 03/24/20 12:05 PT 14.3 Seconds (9.1-10.7) H 03/24/20 12:05 INR (Anticoag Therapy) 1.47 INR (0.92-1.08) H 03/24/20 12:05 Sodium 139 mmol/L (132-142) 03/24/20 12:05 Plasma Sodium 139 mmol/L (130-142) 03/24/20 12:05 Potassium 3.5 mmol/L (3.4-4.6) D 03/24/20 12:05 Chloride 104 mmol/L (97-106) 03/24/20 12:05 Carbon Dioxide 23.7 mmol/L (24-32.6) L 03/24/20 12:05 Anion Gap 14.8 mmol/L (6.8-13.8) H 03/24/20 12:05 BUN 17 mg/dL (3-23) D 03/24/20 12:05 Creatinine 0.88 mg/dL (0.4-1.4) 03/24/20 12:05 Est GFR (Non-Af Amer) 66 mL/min (60-130) 03/24/20 12:05 BUN/Creatinine Ratio 19.3 (9.0-21.6) 03/24/20 12:05 Random Glucose 114 mg/dL (70-110) H 03/24/20 12:05 Calcium 9.5 mg/dL (7.9-10.9) 03/24/20 12:05 Calcium Adj for Albumin 9.8 mg/dL (8.4-10.2) 03/24/20 12:05 Total Bilirubin 1.0 mg/dL (0.0-1.1) 03/24/20 12:05 AST 19 U/L (0-48) 03/24/20 12:05 ALT 15 U/L (19-67) L 03/24/20 12:05 Alkaline Phosphatase 71 U/L (50-170) 03/24/20 12:05 Troponin I Less than 0.017 ng/mL (0.00-0.10) 03/24/20 12:05 B-Natriuretic Peptide 1187 pg/mL (5-550) H 03/24/20 12:05 Total Protein 7.5 gm/dL (6.2-8.2) 03/24/20 12:05 Albumin 3.2 gm/dl (3.4-5.0) L 03/24/20 12:05 SARS-CoV-2 (PCR) Not detected (NotDetected) 03/24/20 14:04 Blood Type O Positive 03/24/20 14:09 Antibody Screen Negative 03/24/20 14:09 Crossmatch See Detail 03/24/20 14:09 Assessment/Plan - Narrative Narrative: Brittney is already better with being diuresed. I will continue her usual home medications. She will receive the 1 unit of packed red blood cells through the night. Anticipate discharge tomorrow. - Assessment/Plan (1) CHF (congestive heart failure) Problem: Acute Qualifiers: Heart failure type: diastolic Heart failure chronicity: acute on chronic Qualified Code(s): I50.33 - Acute on chronic diastolic (congestive) heart failure (2) Shortness of breath Problem: Resolved (3) Pulmonary hypertension Problem: Chronic (4) Acute hyperkalemia Problem: Acute (5) Renovascular hypertension Problem: Chronic
[2020-03-24] MEDS ORDERED: ZOLPIDEM TARTRATE 5 MG TABLET PO PRN (20:01)
[2020-03-24 20:26] LABS: Iron 26 mcg/dL (35-120); Transferrin Sat. (% Sat.) 7 % (15-55)
[2020-03-24] MEDS: METOPROLOL TARTRATE 50 MG TABLET PO SCH (22:05)
[2020-03-25 06:57] LABS: Mean Cell Volume 83.1 fl (78-100); Mean Corpuscular Hemoglobin 24.1 pg (27-31); Neutrophil # 4.8 K/mm3 (1.3-6.0); Neutrophil % 75.5 % (42-75.0); Platelet Count 460 K/mm3 (150-450); Red Blood Count 3.73 M/mm3 (4.2-5.4); Red Cell Distribution Width 19.4 % (11.5-14.0); White Blood Count 6.3 K/mm3 (4.0-10.5)
[2020-03-25 07:06] LABS: Anion Gap 12.6 mmol/L (6.8-13.8); BUN/Creatinine Ratio 17.1 (9.0-21.6); Bilirubin, Total 1.4 mg/dL (0.0-1.1); Ca. Corrected For Albumin 9.4 mg/dL (8.4-10.2); Calcium * 8.9 mg/dL (7.9-10.9); Carbon Dioxide 25.1 mmol/L (24-32.6); Potassium 2.7 mmol/L (3.4-4.6); Total Protein 6.8 gm/dL (6.2-8.2)
[2020-03-25] MEDS: METOPROLOL TARTRATE 50 MG TABLET PO SCH (08:31)
[2020-03-25] MEDS ORDERED: POTASSIUM CHLORIDE 20 MEQ TABLET.SA PO SCH ×2 (09:00→09:45)
[2020-03-25] MEDS ORDERED: SPIRONOLACTONE 25 MG TABLET PO SCH (09:00)
[2020-03-25] MEDS ORDERED: FUROSEMIDE 40 MG TABLET PO SCH (09:00)
[2020-03-25] MEDS ORDERED: FUROSEMIDE 20 MG TABLET PO SCH (09:00)
[2020-03-25] MEDS ORDERED: NIFEdipine 30 MG TAB.SR.24H PO SCH (09:00)
[2020-03-25] MEDS ORDERED: EZETIMIBE 10 MG TABLET PO SCH (09:00)
[2020-03-25] MEDS ORDERED: RIVAROXABAN 20 MG TABLET PO SCH (09:00)
[2020-03-25] MEDS ORDERED: PARoxetine HCL 20 MG TABLET PO SCH (09:00)
[2020-03-25] MEDS ORDERED: FUROSEMIDE 10 MG/ML VIAL IV ONE (09:42)
--- NOTE | 2020-03-25 13:16 | DS ---
(1) CHF (congestive heart failure) Problem: Resolved Qualifiers: Heart failure type: diastolic Heart failure chronicity: acute on chronic Qualified Code(s): I50.33 - Acute on chronic diastolic (congestive) heart failure (2) Shortness of breath Problem: Resolved (3) Pulmonary hypertension Problem: Chronic (4) Renovascular hypertension Problem: Chronic (5) Exercise hypoxemia Problem: Acute (6) Acute hypokalemia Problem: Acute Date of Discharge:: 03/25/20 Hospital Course: Brittney Encinas was admitted with shortness of breath. Examination showed crackles both bases with distended neck veins in the emergency room. She was diuresed there and when I examined her some 4 hours later she had some faint crackles in the right posterior base with the left was clear. She was already feeling better and breathing easier. During that 4-hour she also received 1 unit of packed red blood cells to raise her hemoglobin from 8.2 g to 9.0 g this morning. She was able to walk back and forth to the bathroom without becoming dyspneic but when we walked her in the halls her O2 sat dropped from 92% at rest down to 85% and she had to stop and rest to catch her breath. She required oxygen at 2 L nasal cannula to contain saturation at or above 88%. Her heart rate also went up to 120 bpm but with resting drop back down to 80. She has been diuresed twice with IV Lasix plus oral Lasix and the CHF is resolved. There is no JVD and her HJR is now negative. Home oxygen is being arranged for. Her potassium this morning was 2.7 and she has had 40 mEq of potassium this morning and potassium is back up to 3.2. She is alert and conversant and feels that she can care for herself when she gets home. She is agreeable to do some cardiac rehabilitation for conditioning purposes. She will do that here. Procedures Performed: none Results and Findings: Lab Pending Results 03/24/20 12:05: WBC 5.6, RBC 3.63 L, Hgb 8.2 L, Hct 29.1 L, MCV 80.2, MCH 22.6 L, MCHC 28.2 L, RDW 19.5 H, Plt Count 455 H, MPV 9.3, Immature Gran % (Auto) 1.30 H, Immature Gran # (Auto) 0.07 H, Neutrophils % 74.6, Lymphocytes % 12.4 L, Monocytes % 8.1, Eosinophils % 2.5, Basophils % 1.1 H, Nucleated RBC % 0.1, Neutrophils # 4.2, Lymphocytes # 0.69 L, Monocytes # 0.5, Eosinophils # 0.1, Absolute Basophils 0.1 03/24/20 12:05: Sodium 139, Plasma Sodium 139, Potassium 3.5 D, Chloride 104, Carbon Dioxide 23.7 L, Anion Gap 14.8 H, BUN 17 D, Creatinine 0.88, Est GFR (Non-Af Amer) 66, BUN/Creatinine Ratio 19.3, Random Glucose 114 H, Calcium 9.5, Calcium Adj for Albumin 9.8, Total Bilirubin 1.0, AST 19, ALT 15 L, Alkaline Phosphatase 71, Troponin I Less than 0.017, B-Natriuretic Peptide 1187 H, Total Protein 7.5, Albumin 3.2 L 03/24/20 12:05: PT 14.3 H, INR (Anticoag Therapy) 1.47 H 03/24/20 12:05: Iron 26 L, TIBC 375, Transferrin % Sat 7 L 03/24/20 12:05: Ferritin 22 03/24/20 14:04: SARS-CoV-2 (PCR) Not detected 03/24/20 14:09: Blood Type O Positive, Antibody Screen Negative, Crossmatch See Detail 03/24/20 19:00: Stool Occult Blood Negative 03/25/20 06:46: WBC 6.3, RBC 3.73 L, Hgb 9.0 L, Hct 31.0 L, MCV 83.1, MCH 24.1 L, MCHC 29.0 L, RDW 19.4 H, Plt Count 460 H, MPV 9.0, Immature Gran % (Auto) 1.00 H, Immature Gran # (Auto) 0.06 H, Neutrophils % 75.5 H, Lymphocytes % 11.8 L, Monocytes % 7.8, Eosinophils % 2.9, Basophils % 1.0, Nucleated RBC % 0.0, Neutrophils # 4.8, Lymphocytes # 0.74 L, Monocytes # 0.5, Eosinophils # 0.2, Absolute Basophils 0.1, Absolute Retic 0.1009, Percent Retic 2.8 H, Immature Retic Fraction 37.6 H, Retic Hgb Content 19.3 L 03/25/20 06:46: Sodium 139, Plasma Sodium 139, Potassium 2.7 L D, Chloride 104, Carbon Dioxide 25.1, Anion Gap 12.6, BUN 13, Creatinine 0.76, Est GFR (Non-Af Amer) 79, BUN/Creatinine Ratio 17.1, Random Glucose 102, Calcium 8.9, Calcium Adj for Albumin 9.4, Total Bilirubin 1.4 H, AST 12, ALT 12 L, Alkaline Phosphatase 68, Total Protein 6.8, Albumin 3.0 L 03/25/20 12:15: Potassium 3.2 L Discharge Location: Home Disposition: Home self-care Condition: Stable Face to Face Encounter completed per [facility] Guidelines: Yes - For home oxygen. O2 sat drops from 92% - 85% with walking short distance. Discharge Activity: Activity as tolerated Discharge Diet: Low salt Referrals: Elvira Morales MD [Primary Care Provider] - Additional Patient Instructions (free text): Repeat BMP in 1 week Weigh daily each morning and record. See Dr. Morales for follow-up in 2 weeks Complete Home Medications List: Complete Home Medication List: nifedipine 90 mg tablet,extended release 90 mg PO DAILY #90 tab 10/23/19 rivaroxaban 20 mg tablet 20 mg PO DAILY #90 tab 10/23/19 metoprolol tartrate 50 mg tablet 50 mg PO BID #60 tab 12/06/19 zolpidem 5 mg tablet 5 mg PO HS PRN #30 tab 01/21/20 PARoxetine HCL [Paroxetine HCl] 20 mg PO DAILY 01/28/20 spironolactone 25 mg tablet 12.5 mg PO DAILY tab 02/15/20 Furosemide 40 mg PO DAILY #60 02/22/20 potassium chloride 10 mEq tablet,extended release 20 meq PO DAILY #60 tab 03/12/20 Ezetimibe [Zetia] 10 mg PO DAILY 03/24/20 Amb Orders for Discharge: Cardiac Rehab Location: None Selected Basic Metabolic Panel Time Frame: 2 Weeks, Facility: [facility], Location: Laboratory Home Oxygen Discharge Order Time Frame: 1 Day, Facility: [facility], Location: Respiratory Therapy
[2020-03-25 15:48] VITALS: BP 126/58
== END 2020-03-25 15:00 | disposition home or self-care (01) ==
LOC: ER 10:42 → MS 10:42
PROVIDERS: ADMIT Family Medicine; ATTEND Family Medicine